=== PATIENT | male | born 1980 | race Two or more races ===

== ENCOUNTER 2023-11-16 14:45 | Outpatient (AMB) | payer OTHER, SELFPAY ==
--- NOTE | 2023-11-16 14:55 | A.OFFVIS_ITS ---
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 The patient is a 59-year-old gentleman with a known history of COPD up for sleep apnea. He was followed [facility] for many years. However, then his insurance was not being covered and decided to seek a perianesthesia manager also. He had a sleep study many years ago that demonstrated that he has sleep apnea. He was arranged to start CPAP around 6 years ago. The CPAP therapy has been affecting beneficial. He does uses CPAP every night For about 4 hours a night. He does not sleep much in therefore 4 hours is about the extent of his night. He does get supplies from [facility] and he does use a fullface mask F20 size meeting. His had his CPAP now for about 6 years. Still seems to be working okay although he is concerned with the potential breakdown since is an older machine. Will try to get a download to see the effectiveness of CPAP and see if we need to adjusted further. The patient also carries a diagnosis of COPD. He has a lifelong smoker starting at the age of 14. he is smoked between half a pack to 3/4 of a pack for most of her life until about 2 years ago when he stopped. Although he still smoking marijuana times and now apparently he is using a vape. The patient has been working cutting all these devices. He was also drinking alcohol and stopped because he was getting significant reflux disease. He does have a cough the cough tends to be productive in nature and chest has been congested. Njov-fe-kojvflcy severity. He was not Combivent in addition to a rescue inhaler but he is medications ran out after he stopped following up with [facility]. The patient did have a cardiac workup including a coronary artery CT scan. I did personally review the images with him. Appeared to have some evid ence of bronchitis on the CT scan although very limited lung windows. No evidence of any emphysema or interstitial lung disease that I could appreciate on the limited lung windows. [facility] Medical History (Updated 11/16/23 @ 20:12 by Torrey Preciado MD) ROCKY on CPAP Asthma-COPD overlap syndrome Tobacco dependence Social History (Updated 11/16/23 @ 15:02 by SUSANNE Larsen) Patient Tobacco Use Status: Former Tobacco user Tobacco use type: Cigarette Years Smoked: 20+ Years Review of Systems Const Denies daytime sleepiness Eyes Denies change in vision ENT Denies nasal congestion Card Denies chest pain Resp Reports chest congestion, Reports cough and Denies wheezing GI Reports no additional complaints Musc Reports no additional complaints Skin/Breast Denies rash Neuro Reports no additional complaints Endo Reports no additional complaints Epifanio/Lymph Denies lymphadenopathy Aller/Immun Denies wheezing Physical Exam Vital Signs: Last Vital Signs Pulse 70 11/16/23 14:57 BP 128/70 11/16/23 14:57 Pulse Ox 99 11/16/23 14:57 Oxygen Delivery Method Room Air 11/16/23 14:57 BMI result Body Mass Index 23.7 Const General: comfortable HEENT Head: Yes normocephalic Neck Neck: Yes supple Chest Chest palpation & inspection: normal inspection of the chest Resp Effort & Inspection: normal respiratory effort and prolonged expiratory phase Auscultation: rhonchi Cardio Heart sounds: S1 normal heart sound present and S2 normal heart sound present GI Palpation (GI): Soft to palpation Skin General skin exam: no rashes or lesions noted Extrem General: Yes no clubbing, cyanosis or edema Assessment & Plan Assessment & Plan (1) Asthma-COPD overlap syndrome: Code(s): J44.89 - Other specified chronic obstructive pulmonary disease (2) Tobacco dependence: Code(s): F17.200 - Nicotine dependence, unspecified, uncomplicated (3) ROCKY on CPAP: Code(s): G47.33 - Obstructive sleep apnea (adult) (pediatric) Plan Start Symbicort PFTs LDCT program continue APAP, requesting down load or Airview access to [employer] F/U 4 months Orders: Orders PFT pulmonary function test 3 Months J44.89 - Other specified chronic obstructive pulmonary disease Referrals Thoracic Surgery Referral F17.200 - Nicotine dependence, unspecified, uncomplicated Medications: New budesonide-formoterol 160-4.5 mcg/actuation (Symbicort) 2 puffs inhalation BID 10.2 grams 11RF 30 days J44.89 - Other specified chronic obstructive pulmonary disease Coding Level of Care Code New Pt Level 4 (99524) Diagnoses Asthma-COPD overlap syndrome J44.89 Tobacco dependence F17.200 ROCKY on CPAP G47.33 Time Spent (min) 40
[2023-11-16 14:57] VITALS: BP 128/70; PULSE 70; O2SAT 99; BMI 23.7
== END 2023-11-16 15:34 | disposition home or self-care (01) ==
PROVIDERS: PCP Internal Medicine; Referring Provider Nurse Practitioner Family; Visit Provider Hospitalist
DX: J44.89 Other specified chronic obstructive pulmonary disease (principal); F17.200 Nicotine dependence, unspecified, uncomplicated; G47.33 Obstructive sleep apnea (adult) (pediatric)
CPT/HCPCS: 99204

== ENCOUNTER → 2023-11-16 14:45 | Outpatient (BNVA) | payer OTHER, SELFPAY | PROVIDERS: PCP Internal Medicine; Referring Provider Nurse Practitioner Family; Visit Provider Hospitalist ==

== ENCOUNTER 2024-03-17 15:04 | Outpatient (AMB) | payer OTHER, SELFPAY ==
[2024-03-17 15:13] VITALS: PULSE 68; O2SAT 99; BMI 23.7
--- NOTE | 2024-03-17 15:13 | MHC.OFFVIS ---
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 He was followed [facility] for many years. 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 He had a sleep study many years ago that demonstrated that he has sleep apnea. He was arranged to start CPAP around 6 years ago. The CPAP therapy has been affecting beneficial. He does uses CPAP every night For about 4 hours a night. He does not sleep much in therefore 4 hours is about the extent of his night. [facility] and he does use a fullface mask F20 size meeting. His had his CPAP now for about 6 years. Still seems to be working okay although he is concerned with the potential breakdown since is an older machine. Will try to get a download to see the effectiveness of CPAP and see if we need to adjusted further. The patient also carries a diagnosis of COPD. He has a lifelong smoker starting at the age of 14. he is smoked between half a pack to 3/4 of a pack for most of her life until about 2 years ago when he stopped. Although he still smoking marijuana times and now apparently he is using a vape. The patient has been working cutting all these devices. He was also drinking alcohol and stopped because he was getting significant reflux disease. He does have a cough the cough tends to be productive in nature and chest has been congested. Kqko-op-giyibcqa severity. He was not Combivent in addition to a rescue inhaler but he is medications ran out after he stopped following up with [facility]. The patient did have a cardiac workup including a coronary artery CT scan. I did personally review the images with him. Appeared to have some evidence of bronchitis on the CT scan although very limited lung windows. No evidence of any emphysema or interstitial lung disease that I could appreciate on the limited lung windows. 03/17/2024 the patient is here for a pulmonary follow-up visit. Overall the patient has been doing well. He has been using his respiratory inhalers as prescribed. He is finding affecting beneficial. Typically does not have to use his rescue inhaler often typically less than 2 times a week. We did review his last PFTs that he had a Liv demonstrating no definitive obstructive ventilatory defect. The patient does feel like his breathing has gotten better since he quit smoking. Meantime the patient has been using the CPAP. The CPAP therapy has been very affecting beneficial. He has been getting supplies with his [employer] company, [employer]. At this point the machine is older than 5 years and does not appear to be working effectively for him any longer with the motor reaching its life expectancy. Will request a replacement machine at this time. He has using a fullface mask. COUNT INCLUDES THE [facility] Medical History (Updated 03/17/24 @ 22:23 by Torrey Preciado MD) ROCKY on CPAP Asthma-COPD overlap syndrome Tobacco dependence Social History (Updated 11/16/23 @ 15:02 by SUSANNE Larsen) Patient Tobacco Use Status: Former Tobacco user Tobacco use type: Cigarette Years Smoked: 20+ Years Review of Systems Const Denies daytime sleepiness Eyes Denies change in vision ENT Denies nasal congestion Card Denies chest pain Resp Denies chest congestion, Reports cough and Denies wheezing GI Reports no additional complaints Musc Reports no additional complaints Skin/Breast Denies rash Neuro Reports no additional complaints Endo Reports no additional complaints Epifanio/Lymph Denies lymphadenopathy Aller/Immun Denies wheezing Physical Exam Vital Signs: Last Vital Signs Pulse 68 03/17/24 15:13 Pulse Ox 99 03/17/24 15:13 Oxygen Delivery Method Room Air 03/17/24 15:13 BMI result Body Mass Index 23.7 Const General: comfortable HEENT Head: Yes normocephalic Neck Neck: Yes supple Chest Chest palpation & inspection: normal inspection of the chest Resp Effort & Inspection: normal respiratory effort and No prolonged expiratory phase Auscultation: no rhonchi and diminished lung sounds Cardio Heart sounds: S1 normal heart sound present and S2 normal heart sound present GI Palpation (GI): Soft to palpation Skin General skin exam: no rashes or lesions noted Extrem General: Yes no clubbing, cyanosis or edema Assessment & Plan Assessment & Plan (1) Asthma-COPD overlap syndrome: Code(s): J44.89 - Other specified chronic obstructive pulmonary disease Category: Medical (2) Tobacco dependence: Comment: quit Code(s): F17.200 - Nicotine dependence, unspecified, uncomplicated Category: Medical (3) ROCKY on CPAP: Code(s): G47.33 - Obstructive sleep apnea (adult) (pediatric) Category: Medical Plan continue Symbicort ANITA as needed LDCT program Requesting replacement APAP, Airsense 11. His current APAP is >6 years and malfuctioning. Needs a replacement machine F/U 2-3 months Coding Level of Care Code Est Pt Level 4 (24944) Diagnoses Asthma-COPD overlap syndrome J44.89 Tobacco dependence F17.200 ROCKY on CPAP G47.33 Time Spent (min) 17
== END 2024-03-17 15:31 | disposition home or self-care (01) ==
PROVIDERS: PCP Internal Medicine; Visit Provider Hospitalist
DX: J44.89 Other specified chronic obstructive pulmonary disease (principal); F17.200 Nicotine dependence, unspecified, uncomplicated; G47.33 Obstructive sleep apnea (adult) (pediatric)
CPT/HCPCS: 99214

== ENCOUNTER → 2024-03-17 15:04 | Outpatient (BNVA) | payer OTHER, SELFPAY | PROVIDERS: PCP Internal Medicine; Visit Provider Hospitalist ==

== ENCOUNTER 2024-04-26 13:44 | Outpatient (AMB) | payer SELFPAY ==
[2024-04-26 14:05] VITALS: PULSE 60; O2SAT 98; BMI 23.7
--- NOTE | 2024-04-26 14:05 | MHC.OFFVIS ---
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 He was followed [facility] for many years. However, then his insurance was not being covered and decided to seek a placement director also. He had a sleep study many years ago that demonstrated that he has sleep apnea. He was arranged to start CPAP around 6 years ago. The CPAP therapy has been affecting beneficial. He does uses CPAP every night For about 4 hours a night. He does not sleep much in therefore 4 hours is about the extent of his night. [facility] and he does use a fullface mask F20 size meeting. His had his CPAP now for about 6 years. Still seems to be working okay although he is concerned with the potential breakdown since is an older machine. Will try to get a download to see the effectiveness of CPAP and see if we need to adjusted further. The patient also carries a diagnosis of COPD. He has a lifelong smoker starting at the age of 14. he is smoked between half a pack to 3/4 of a pack for most of her life until about 2 years ago when he stopped. Although he still smoking marijuana times and now apparently he is using a vape. The patient has been working cutting all these devices. He was also drinking alcohol and stopped because he was getting significant reflux disease. He does have a cough the cough tends to be productive in nature and chest has been congested. Atfn-he-pockwpxo severity. He was not Combivent in addition to a rescue inhaler but he is medications ran out after he stopped following up with [facility]. The patient did have a cardiac workup including a coronary artery CT scan. I did personally review the images with him. Appeared to have some evidence of bronchitis on the CT scan although very limited lung windows. No evidence of any emphysema or interstitial lung disease that I could appreciate on the limited lung windows. 03/17/2024 the patient is here for a pulmonary follow-up visit. Overall the patient has been doing well. He has been using his respiratory inhalers as prescribed. He is finding affecting beneficial. Typically does not have to use his rescue inhaler often typically less than 2 times a week. We did review his last PFTs that he had a Liv demonstrating no definitive obstructive ventilatory defect. The patient does feel like his breathing has gotten better since he quit smoking. Meantime the patient has been using the CPAP. The CPAP therapy has been very affecting beneficial. He has been getting supplies with his DME company, [employer]. At this point the machine is older than 5 years and does not appear to be working effectively for him any longer with the motor reaching its life expectancy. Will request a replacement machine at this time. He has using a fullface mask. 04/26/2024 the patient is here for pulmonary follow-up visit. Overall the patient has been doing well. He did undergo his cervical surgery at [facility] without any complications. He was told feeling a little sore and stiff in the neck area. Therefore it has been hard for him to use his CPAP. He has been sleeping without it for the last few weeks as he recovers from surgery. once the patient has stiffness and foods he will start using CPAP more regularly. Meantime his current machine is old is greater than 6 years and has not not been working as effective as it did before. He is getting supplies from his DME company. He needs to get a replacement machine. We did request 1 during the last visit. Will request an update from the [employer] company regards of the replacement CPAP. His CPAP therapy has been very affecting beneficial for many years and does use for more than 4 hours a night typically. Now after his surgery is understandable that based on the location of surgery is hard for him to adjust as it was causing discomfort when he started using it initially after surgery. Hopefully in the next week or 2 he can restart using it again. From a respiratory status he does have his respiratory medications. No recent imaging studies reviewed. will plan to follow-up sometime in the spring. The patient has any issues prior to that he will call for an earlier assessment. [facility] Medical History (Updated 03/17/24 @ 22:23 by Torrey Preciado MD) ROCKY on CPAP Asthma-COPD overlap syndrome Tobacco dependence Social History (Updated 11/16/23 @ 15:02 by SUSANNE Larsen) Patient Tobacco Use Status: Former Tobacco user Tobacco use type: Cigarette Years Smoked: 20+ Years Review of Systems Const Denies daytime sleepiness Eyes Denies change in vision ENT Denies dysphagia, Denies nasal congestion and Reports neck pain Card Denies chest pain Resp Denies chest congestion, Reports cough and Denies wheezing GI Reports no additional complaints and Denies dysphagia Musc Reports no additional complaints and Reports neck pain Skin/Breast Denies rash Neuro Reports no additional complaints Endo Reports no additional complaints Epifanio/Lymph Denies lymphadenopathy Aller/Immun Denies wheezing Physical Exam Vital Signs: Last Vital Signs Pulse 60 04/26/24 14:05 Pulse Ox 98 04/26/24 14:05 Oxygen Delivery Method Room Air 04/26/24 14:05 BMI result Body Mass Index 23.7 Const General: comfortable HEENT Head: Yes normocephalic Neck Neck: Yes trachea midline, Yes supple and Yes other (incision C/D/I) Chest Chest palpation & inspection: normal inspection of the chest Resp Effort & Inspection: normal respiratory effort and No prolonged expiratory phase Auscultation: no rhonchi and diminished lung sounds Cardio Heart sounds: S1 normal heart sound present and S2 normal heart sound present GI Palpation (GI): Soft to palpation Skin General skin exam: no rashes or lesions noted Extrem General: Yes no clubbing, cyanosis or edema Assessment & Plan Assessment & Plan (1) Asthma-COPD overlap syndrome: Code(s): J44.89 - Other specified chronic obstructive pulmonary disease Category: Medical (2) Tobacco dependence: Comment: quit Code(s): F17.200 - Nicotine dependence, unspecified, uncomplicated Category: Medical (3) ROCKY on CPAP: Code(s): G47.33 - Obstructive sleep apnea (adult) (pediatric) Category: Medical Plan continue Symbicort ANITA as needed LDCT program Requesting replacement APAP, Airsense 11. His current APAP is >6 years and malfuctioning. Needs a replacement machine. Will restart CPAP once he recovers from his neck surgery in the next 1-2 weeks F/U Spring 2024 Coding Level of Care Code Est Pt Level 4 (71015) Diagnoses Asthma-COPD overlap syndrome J44.89 Tobacco dependence F17.200 ROCKY on CPAP G47.33 Time Spent (min) 16
== END 2024-04-26 14:27 | disposition home or self-care (01) ==
PROVIDERS: PCP Internal Medicine; Visit Provider Hospitalist
DX: J44.89 Other specified chronic obstructive pulmonary disease (principal); F17.200 Nicotine dependence, unspecified, uncomplicated; G47.33 Obstructive sleep apnea (adult) (pediatric)
CPT/HCPCS: 99214

== ENCOUNTER → 2024-04-26 13:44 | Outpatient (BNVA) | payer OTHER, SELFPAY | PROVIDERS: PCP Internal Medicine; Visit Provider Hospitalist ==